=== PATIENT | male | born 1995 | race Caucasian/White ===

== ENCOUNTER 2019-03-29 14:29 | Emergency (ER) | payer OTHER ==
[~2019-03-29] VITALS: Ht 182.9 cm; Wt 75.7 kg
[2019-03-29 14:40] VITALS: BP 137/62
[2019-03-29] MEDS ORDERED: HYDROcodone/APAP 7.5/325 MG 1 TAB PO ONE (15:00)
--- NOTE | 2019-03-29 15:10 | NUR ---
PATIENT PRESENTS TO ED WITH C/O RT HAND AND LT FOOT PAIN AFTER AN ACCIDENT AT WORK. PT STATES A METAL LANDED ON RT HAND AND LT FOOT TODAY. DENIES N/V; PATIENT STATES PAIN OF 10/10 AT THIS TIME; VSS; PATIENT POSITIONED FOR COMFORT; HOB ELEVATED; BEDRAILS UP X1; BED DOWN. FAMILY AT BEDSIDE.
--- NOTE | 2019-03-29 15:16 | NUR ---
PT STATES HE RECIEVED THE TDAP VACCINE APPROX 2 YEARS AGO. BARBIE SEPULVEDA INFORMED; TDAP VACCINE ORDER CANCELLED.
[2019-03-29 15:22] VITALS: BP 137/62
--- NOTE | 2019-03-29 16:50 | NUR ---
Patient discharged with v/s stable. Written and verbal after care instructions given and explained. Patient alert, oriented and verbalized understanding of instructions. Ambulatory with steady gait. All questions addressed prior to discharge. ID band removed. Patient advised to follow up with PMD. Rx of IBU,BACITRACIN,NORCO given. Patient educated on indication of medication including possible reaction and side effects. Opportunity to ask questions provided and answered.
== END 2019-03-29 16:50 | disposition home or self-care (01) ==
LOC: MED 14:29
DX: S92.422A Displaced fracture of distal phalanx of left great toe, initial encounter for closed fracture (principal); M79.641 Pain in right hand; W22.8XXA Striking against or struck by other objects, initial encounter; Y93.89 Activity, other specified; Y92.63 Factory as the place of occurrence of the external cause; Y99.0 Civilian activity done for income or pay
CPT/HCPCS: 29125; 73130; 73630; 99283; Q0092; 90715